=== PATIENT | male | born 1965 | race Caucasian/White ===

== ENCOUNTER → 2016-10-19 | Outpatient (CLI) | payer BC ==
[~2016-10-19] MED LIST: ATOR-22 PO; CHOL4POW4 PO; FLNIN NAE; PRLSR20 PO
[2016-10-19 13:05] LABS: ALKALINE PHOSPHATASE 82 U/L (45-117); ALT/SGPT 35 U/L (12-78); AST/SGOT 18 U/L (15-37); CHOLESTEROL 137 mg/dl (0-200); CHOLESTEROL/HDL RATIO 3.9; HDL CHOLESTEROL 35 mg/dl; LDL CHOLESTEROL CALCULATED 37 mg/dl; TRIGLYCERIDES 323 mg/dl (0-150); VERY LOW DENSITY LIPOPROT CALC 65 mg/dl
== END ==
LOC: C.LABBFT 08:34
PROVIDERS: ATTEND Internal Medicine
DX: E78.5 Hyperlipidemia, unspecified (principal)

== ENCOUNTER → 2017-02-26 | Outpatient (CLI) | payer BC ==
[2017-02-26 13:11] LABS: CHOLESTEROL/HDL RATIO 2.8; PROSTATE SPECIFIC ANTIGEN 0.352 ng/ml (0.000-4.000)
== END | disposition home or self-care (01) ==
LOC: C.LABBFT 08:39
PROVIDERS: ATTEND Internal Medicine
DX: E78.5 Hyperlipidemia, unspecified (principal); M75.20 Bicipital tendinitis, unspecified shoulder; K62.89 Other specified diseases of anus and rectum; Z13.1 Encounter for screening for diabetes mellitus; R50.9 Fever, unspecified; Z12.5 Encounter for screening for malignant neoplasm of prostate; H69.80 Other specified disorders of Eustachian tube, unspecified ear; R03.0 Elevated blood-pressure reading, without diagnosis of hypertension; Z13.6 Encounter for screening for cardiovascular disorders

== ENCOUNTER → 2017-05-06 | Outpatient (CLI) | payer BC ==
--- NOTE | 2017-05-06 12:03 | DIAGNOSTIC IMAGING REPORT ---
L ANKLE MIN 3 VIEWS ROUTINE HISTORY: 52 years-old Male M25.572 Ankle pain, [id number] acute left-sided ankle pain for several months. No reported trauma. COMPARISON: None available. TECHNIQUE: 3 views of the left ankle FINDINGS: No acute fracture, dislocation or significant osteoarthritis. There is prominent spurring about the Achilles insertion site of the calcaneus. No osteochondral defect. There is mild soft tissue swelling about the ankle. Vascular calcifications are noted. IMPRESSION: 1. Mild soft tissue swelling without acute fracture or dislocation. 2. Prominent Achilles enthesophyte about the calcaneus. 3. Peripheral vascular disease. The above report was generated using voice recognition software. It may contain grammatical, syntax or spelling errors. Electronically signed by: Donny Mchugh M.D. 05/06/2017 12:02 PM Dictated Date/Time: 05/06/2017 12:01 PM
== END | disposition home or self-care (01) ==
LOC: C.RAD 11:40
PROVIDERS: ATTEND Nurse Practitioner
DX: M25.572 Pain in left ankle and joints of left foot (principal); M79.89 Other specified soft tissue disorders; M77.52 Other enthesopathy of left foot and ankle; I73.9 Peripheral vascular disease, unspecified